=== PATIENT | female | born 1965 | race Caucasian/White ===

== ENCOUNTER → 2023-06-19 07:02 | Outpatient (REF) | payer BC, SELFPAY | LOC: DHCBC/DCA 07:02 | PROVIDERS: ATTENDING PHYSICIAN Internal Medicine Cardiovascular Disease; FAMILY PHYSICIAN Family Medicine | DX: R06.09 Other forms of dyspnea (principal) | CPT/HCPCS: 78452; 93017; A9500 ==

== ENCOUNTER → 2023-07-17 11:02 | Outpatient (REF) | payer BC, SELFPAY | LOC: DHCBS HW 11:02 | PROVIDERS: ATTENDING PHYSICIAN Internal Medicine Cardiovascular Disease; FAMILY PHYSICIAN Family Medicine | DX: I50.22 Chronic systolic (congestive) heart failure (principal) | CPT/HCPCS: 93306 ==